=== PATIENT | male | born 1990 | race Caucasian/White ===

== ENCOUNTER → 2021-06-12 | Outpatient (CLI) | payer OTHER ==
--- NOTE | 2021-06-12 12:14 | REP ---
INDICATION: R ACHILLES TENDON PAIN. COMPARISON: None. TECHNIQUE: Two views FINDINGS: There is no acute fracture or destructive osseous lesion. There is a tiny retrocalcaneal heel spur. IMPRESSION: No acute abnormality. There is a tiny retrocalcaneal heel spur. If an Achilles tendon abnormality is of clinical concern then an MRI is recommended <Electronically signed by Bk Stuart > 06/12/21 [id number]
== END ==
LOC: M RAD 11:33
PROVIDERS: ATTEND Physician Assistant Medical
DX: M77.31 Calcaneal spur, right foot (principal)

== ENCOUNTER 2022-04-01 19:07 | Emergency (ER) | payer OTHER ==
[~2022-04-01] VITALS: Ht 188 cm; Wt 125.0 kg
[2022-04-01] MEDS ORDERED: KETOROLAC 30 MG/ML 1ML VIAL IV ONE (19:40)
[2022-04-01] MEDS ORDERED: ONDANSETRON 4MG/2ML VIAL IV ONE (19:40)
[2022-04-01] MEDS ORDERED: NS 1,000 ML IV ONE (19:40)
[2022-04-01 19:56] LABS: BASO # 0.1 10^3/uL (0.0-0.2); BASO % 0.9 % (0.0-1.0); EOS # 0.1 10^3/uL (0.0-0.5); EOS % 0.6 % (0.0-3.0); HEMATOCRIT 50.6 % (42.0-52.0); HEMOGLOBIN 17.6 g/dl (13.5-17.5); LYMPH # 1.4 10^3/uL (1.5-5.0); LYMPH % 11.8 % (24.0-44.0); MEAN CORPUSCULAR HEMOGLOBIN 29.6 pg (27.0-33.0); MEAN CORPUSCULAR HGB CONC 34.8 g/dl (32.0-36.5); MEAN CORPUSCULAR VOLUME 85.2 fl (80.0-96.0); MONO # 0.8 10^3/uL (0.0-0.8); MONO % 6.5 % (2.0-8.0); NEUTROPHILS # 9.2 10^3/uL (1.5-8.5); NEUTROPHILS % 78.9 % (36.0-66.0); PLATELET COUNT, AUTOMATED 282 10^3/uL (150-450); RED BLOOD COUNT 5.94 10^6/uL (4.30-6.10); WHITE BLOOD COUNT 11.6 10^3/uL (4.0-10.0)
[2022-04-01] MEDS ORDERED: ISOVUE-370 76% 100ML VIAL As Ordered ONE (20:07)
[2022-04-01 20:26] LABS: RSV AMPLIFICATION NEGATIVE (NEGATIVE)
[2022-04-01 20:32] LABS: ALBUMIN 3.9 GM/DL (3.2-5.2); ALT/SGPT 43 U/L (12-78); BILIRUBIN,DIRECT 0.2 MG/DL (0.0-0.2); BILIRUBIN,TOTAL 0.9 MG/DL (0.2-1.0); LIPASE 138 U/L (73-393); TOTAL PROTEIN 7.2 GM/DL (6.4-8.2)
[2022-04-01] MEDS ORDERED: AZITHROMYCIN 250MG TABLET PO ONE (23:40)
[2022-04-01] MEDS ORDERED: ONDA4TAB6 PO (23:44)
[2022-04-01] MEDS ORDERED: AZIT-12 PO (23:46)
[2022-04-02 00:02] VITALS: BP 165/81
[2022-04-02 09:53] LABS: HEPATITIS B SURFACE ANTIGEN NEGATIVE (NEGATIVE)
[2022-04-02 10:20] LABS: HEPATITIS C VIRUS ABY INDEX 0.1 INDEX (<0.8)
[2022-04-02 10:21] LABS: HEPATITIS B CORE ANTIBODY IGM NEGATIVE (NEGATIVE)
== END 2022-04-02 00:04 | disposition home or self-care (01) ==
LOC: M ED 19:07
DX: J18.9 Pneumonia, unspecified organism (principal); F17.210 Nicotine dependence, cigarettes, uncomplicated
CPT/HCPCS: 71046; 71250; 74177; 80047; 80076; 83690; 85025; 86705; 86709; 86803; 87340; 87631; 96361; 96374; 96375; 99284; J1885; J2405; Q9967

== ENCOUNTER → 2022-12-26 | Outpatient (REF) ==
[~2022-12-26] MED LIST: AZIT-12 PO; ONDA4TAB6 PO
== END ==
LOC: M PLAIMG 08:53
PROVIDERS: ATTEND Internal Medicine
DX: R52 Pain, unspecified (principal)

== ENCOUNTER → 2023-02-20 | Outpatient (CLI) | payer OTHER | LOC: M RAD 07:30 | PROVIDERS: ATTEND Physical Medicine & Rehabilitation | DX: M51.36 Other intervertebral disc degeneration, lumbar region (principal) | CPT/HCPCS: 78803; A9503 ==